=== PATIENT | male | born 1975 | race Hispanic/Latino ===

== ENCOUNTER 2025-04-15 06:24 | Emergency (ER) | payer BC ==
[~2025-04-15] VITALS: Ht 167.6 cm; Wt 85.3 kg
[2025-04-15 07:31] LABS: IMMATURE GRANULOCYTE ABSOLUTE 0.03 K/uL (0-1); NUCLEATED RED BLOOD CELLS 0.0 % (0.0-0.19); PLATELET COUNT (AUTO) 262 K/uL (130-400); RED BLOOD CELL COUNT(AUTO) 5.87 MIL/uL (4.50-6.20); RED CELL DISTRIBUTION WIDTH 12.8 % (11.0-15.5); WHITE BLOOD COUNT (AUTO) 6.0 K/uL (4.8-10.8)
--- NOTE | 2025-04-15 07:38 | EKG ---
[facility] Test Date: 2025-04-15 Test Time: 07:21:27 Pat Name: VICTOR HUGO LARA Department: [facility] Room: Gender: Male [employer]: [id number] : 1975 Requested By: RANDI MADERA Order Number: [id number] Reading MD: Measurements Intervals [place] Rate: 89 P: 35 LA: 156 QRS: -27 QRSD: 83 T: 32 QT: 391 QTc: 477 Interpretive Statements Sinus rhythm No previous ECG available for comparison Please click the below link to view image of tracing.
--- NOTE | 2025-04-15 07:40 | ERN ---
General Chief Complaint: Rib Pain Stated Complaint: L RIB PAIN Time Seen by MD: 07:11 Source: patient History of Present Illness Initial Comments 49-year-old male coming in complaining of left upper quadrant pain. Per patient the pain is localized to the left upper abdomen and lower left rib. He states that the pain began on its own does not recall any traumatic event. He states the pain started after he ate barbecue at his house. He describes the pain as aching exacerbated by movements or touch. He states that lying down flat on his back makes the pain a little more tolerable. He has a past medical history of hypertension for which he is on amlodipine lisinopril and chlorthalidone. He also states that he had a remote history of cysts in the neck which was surgically corrected. Allergies: Coded Allergies: Penicillins (Verified Allergy, Unknown, 12/30/22) Home Meds No Active Prescriptions or Reported Meds Past Medical History Past Medical History: High Cholesterol, Hypertension Past Surgical History: Appendectomy ROS Dictation CONSTITUTIONAL: No chills, no fever, no weakness, no diaphoresis, no malaise. HEAD/FACE: No signs of trauma. EENT: No eye pain, no blurred vision, no tearing, no double vision, no ear pain, no ear discharge, no nose pain, no nasal congestion, no throat pain, no throat swelling, no mouth pain. RESPIRATORY: No cough, no orthopnea, no SOB, no stridor, no wheezing. CARDIOVASCULAR: No chest pain, no edema, no palpitations, no syncope. GASTROINTESTINAL/ABDOMINAL: abdominal pain, no constipation, no diarrhea, no nausea, no vomiting. GENITOURINARY: No abnormal discharge, no dysuria, no frequent urination, no hematuria. No complaints of pain in the genitals. MUSCULOSKELETAL: No back pain, no gout, no joint pain, no joint swelling, no muscle pain, no muscle stiffness, no neck pain. INTEGUMENTARY: No change in color, no change in hair/nails, no dryness, no lesion, no lumps, no rash. NEUROLOGICAL/PSYCH: No anxiety, not depressed, no emotional problem, no heada robert, no numbness, no pre-existing deficit, no history of seizures, no tremors, no weakness. HEMATOLOGIC/LYMPHATIC: Not anemic, no history of blood clots, no apparent bleeding, no bruising, glands not swollen. All Systems Negative, Except as Noted. Physical Exam Physical Exam Dictation VITAL SIGNS: Reviewed. GENERAL APPEARANCE: Alert, oriented x3, no acute distress, obese. HEAD AND FACE: Non-traumatic. EYES: PERRL, pink conjunctivas, eyelid no trauma, anterior chamber clear. EARS: Pinnas intact and no signs of trauma or erythema. Ear canals clear and no discharge. TMs no erythema. NOSE: No discharge, no bleeding. OROPHARYNX: Mouth normal, teeth no caries, tongue pink. Pharynx clear, no erythema. Tonsils no exudates, no abscesses noted. Mucous membrane moist. NECK: Supple, non-tender, no thyromegaly, no masses, no JVD, no bruits. BREAST: Deferred. CHEST: No tenderness, no crepitus, no paradoxical movement, no retractions. LUNGS: Clear, well-ventilated, symmetric, no rales, no wheezing, no rhonchi, no stridor, good breath sounds bilaterally. HEART: Regular rate, regular rhythm, no murmur, no gallops. VASCULAR: No peripheral edema. ABDOMEN: Soft, positive bowel sounds, nondistended, no guarding,tender, no rebound, no masses no hepatomegaly, no splenomegaly, no Browne's sign, no hernias. RECTAL: Deferred. GENITAL: Deferred. NEUROLOGICAL: Normal speech, gross motor function intact, gross sensory function intact. MUSCULOSKELETAL: Neck nontender, full range of motion, back nontender, full range of motion. EXTREMITIES: Nontender, full range of motion. SKIN: Color pink, dry, no turgor, no rash, no lacerations, no abrasions, no contusions. LYMPHATICS: Deferred. Results Laboratory and Microbiology Lab and Micro Result Laboratory Tests Test 04/15/25 07:23 04/15/25 07:27 White Blood Count 6.0 K/uL (4.8-10.8) Red Blood Count 5.87 MIL/uL (4.50-6.20) Hemoglobin 17.4 g/dL (14.0-18.0) Hematocrit 48.7 % (42-54) Mean Corpuscular Volume 83.0 fL (79-99) Mean Corpuscular Hemoglobin 29.6 pg (27.0-33.0) Mean Corpuscular Hemoglobin Concent 35.7 g/dL (32.0-36.0) Red Cell Distribution Width 12.8 % (11.0-15.5) Platelet Count 262 K/uL (130-400) Mean Platelet Volume 8.7 fL (7.5-10.5) Immature Granulocyte % (Auto) 0.5 % (0-1) Neutrophils (%) (Auto) 72.9 % (40.0-77.0) Lymphocytes (%) (Auto) 14.8 % (21.0-51.0) L Monocytes (%) (Auto) 7.0 % (3.0-13.0) Eosinophils (%) (Auto) 4.1 % (0.0-8.0) Basophils (%) (Auto) 0.7 % (0.0-5.0) Neutrophils # (Auto) 4.4 K/uL (1.8-7.7) Lymphocytes # (Auto) 0.9 K/uL (1.0-4.8) L Monocytes # (Auto) 0.4 K/uL (0.1-1.0) Eosinophils # (Auto) 0.25 K/uL (0.00-0.70) Basophils # (Auto) 0.04 K/uL (0.00-0.20) Absolute Immature Granulocyte (auto 0.03 K/uL (0-1) Nucleated Red Blood Cells 0.0 % (0.0-0.19) Sodium Level 138 mmol/L (136-145) Potassium Level 3.2 mmol/L (3.5-5.1) L Chloride Level 98 mmol/L (101-111) L Carbon Dioxide Level 32 mmol/L (21-32) Blood Urea Nitrogen 18 mg/dL (7-18) Creatinine 0.9 mg/dL (0.5-1.3) Glomerular Filtration Rate Calc 106 mL/min (>90) Random Glucose 98 mg/dL (70-105) Total Calcium 9.6 mg/dL (8.5-10.1) Troponin I High Sensitivity < 4 ng/L (4-75) L Urine Color LIGHT-YELLOW (YELLOW) Urine Appearance CLEAR (CLEAR) Urine pH 6.0 (5.0-8.0) Urine Specific Gilbert 1.016 (1.001-1.031) Urine Protein NEGATIVE mg/dL (NEGATIVE) Urine Glucose (UA) NEGATIVE mg/dL (NEGATIVE) Urine Ketones NEGATIVE mg/dL (NEGATIVE) Urine Occult Blood NEGATIVE (NEGATIVE) Urine Nitrate NEGATIVE (NEGATIVE) Urine Bilirubin NEGATIVE mg/dL (NEGATIVE) Urine Urobilinogen 0.2 mg/dL (0.2-1.0) Urine Leukocyte Esterase NEGATIVE Omid/uL Urine RBC 0-1 /HPF (0-1) Urine WBC 0-1 /HPF (0-1) Urine Bacteria None /HPF (None Seen) Labs Reviewed?: Yes EKG/XRAY/US/CT/MRI CT Scan Comment [facility] [address] [place] [address] IMAGING REPORT Signed PATIENT: VICTOR HUGO LARA MR#: [id number] : 1975 SEX: M AGE: 49 LOCATION: [facility] ORDER 3 STATUS: [facility] REPORT#: [id number] SERVICE 1 REASON: llq pain ORDERING PHYSICIAN: RANDI MADERA MD PROCEDURE: ABD PEL WO - CT ABDOMEN/PELVIS W/O CONTRAST EXAM: CT Abdomen and Pelvis Without IV contrast CLINICAL HISTORY: llq pain TECHNIQUE: Axial computed tomography images of the abdomen and pelvis without intravenous contrast. CONTRAST: No IV contrast. COMPARISON: None provided. FINDINGS: LUNG BASES: The lung bases appear clear. No pleural effusions are seen. LIVER: Unremarkable. GALLBLADDER AND BILE DUCTS: The gallbladder appears within normal limits. No radioopaque gallstones are seen. No biliary ductal dilatation is evident. PANCREAS: Unremarkable. SPLEEN: Unremarkable. ADRENAL GLANDS: Unremarkable. KIDNEYS, URETERS, AND BLADDER: The kidneys appear within normal limits. There is no hydronephrosis or hydroureter. No urinary calculi are seen. STOMACH AND BOWEL: Unremarkable appearance of the stomach and bowel. No evidence of bowel obstruction. No evidence suggesting enteritis or colitis. APPENDIX: Surgical clips at the base of the cecum, consistent with prior appendectomy. PERITONEUM: No free fluid. No free air. LYMPH NODES: No lymphadenopathy is evident. REPRODUCTIVE: Unremarkable as visualized. VASCULATURE: No evidence of abdominal aortic aneurysm. BONES: No aggressive appearing osseous lesion. No acute osseous pathology evident. IMPRESSION: No acute intra-abdominal or pelvic abnormality. /[place] DICTATED BY: CAITLIN BENITEZ MD DATE: 04/15/25925 ELECTRONICALLY SIGNED BY: CAITLIN BENITEZ MD DATE: 04/15/25925 [facility] MDM: Differential diagnosis: Abdominal pain, gastritis, NSTEMI, STEMI, Rationale: Tests considered and ordered secondary to shared decision making include: Previous outside records reviewed: Old ER visits. Risk of complication and/or morbidity or mortality of patient management: None Medications-Per medication reconciliation Patient is a 49-year-old male coming in complaining of left upper quadrant pain. Imaging studies and laboratory workup within normal limits. Patient received GI cocktail states he feels better will be discharged in stable condition with a diagnosis of gastritis. Due to the intense pain he presented CT needed to be performed to rule out any pathology. ED Course Orders Procedure Category Date Status Time Cbc With Differential LAB 04/15/25 Complete 07:12 Basic Metabolic Panel LAB 04/15/25 Complete 07:12 Urinalysis LAB 04/15/25 Complete W/Microscopic 07:12 12 Lead Ekg Tracing- EKG 04/15/25 Complete Technical 07:12 Troponin I High LAB 04/15/25 Complete Sensitivity 07:12 Ct Abdomen/Pelvis W/O CT 04/15/25 Resulted Contrast 07:12 Lidocaine Hcl 2% PHA 04/15/25 In Process Viscous (Lidocaine Hcl 09:00 Mag/Alum/Simeth 30ml PHA 04/15/25 In Process (Maalox Plus 30ml) 09:00 Ketorolac PHA 04/15/25 In Process Tromethamine 15mg/Ml 09:00 Current Medications Medications (Trade) Dose Ordered Sig/Stanislaw Route PRN Reason Start Time Stop Time Status Last Admin Dose Admin Al Hydroxide/Mg Hydroxide (MAALox PLUS 30ML) 30 ml ONCE ONCE PO 04/15/25 09:00 04/15/25 09:01 04/15/25 08:54 Ketorolac Tromethamine (toRADol) 15 mg ONCE ONCE IV 04/15/25 09:00 04/15/25 09:01 04/15/25 08:54 Lidocaine HCl (Lidocaine HCl 2% Viscous) 10 ml ONCE ONCE PO 04/15/25 09:00 04/15/25 09:01 04/15/25 08:54 Vital Signs Date Time Temp Pulse Resp B/P (MAP) Pulse Ox O2 Delivery O2 Flow Rate FiO2 04/15/25 07:20 98.1 91 16 136/85 99 Room Air* 0 21 04/15/25 06:27 98.1 98 18 137/97 96 Room Air 0 DX & DISP Disposition: Discharge Departure Impression: Primary Impression: Gastritis, acute Condition: Stable Scripts Pantoprazole Sodium (Protonix) 40 Mg Ectab 1 TAB PO DAILY for 30 Days, #30 TAB 0 Refills Prov: RANDI MADERA MD 04/15/25 Additional Instructions: You arrived to the emergency department with complaints of abdominal pain on the left side. We performed a series of laboratory tests and imaging studies to rule out serious causes of your condition. We have reviewed the imaging report by the radiologist which did not point out any serious abnormalities in your abdomen. Based on the clinical history and our investigations, we have diagnosed you with acute gastritis for which we have treated you. At this time we are discharging you as we believe that you do not warrant an admission. If your symptoms persist/become more frequent/increase in intensity please visit an ER. Referrals: DONNA CARRASCO MD (PCP) Time of Disposition: 08:59 RANDI MADERA MD Apr 15, 2025 07:40 SAI SALAZAR MD Apr 15, 2025 08:52
[2025-04-15 07:44] LABS: CREATININE 0.9 mg/dL (0.5-1.3); GLOMERULAR FILTR. RATE CALC 106.0 mL/min (>90); GLUCOSE,RANDOM 98.0 mg/dL (70-105); SODIUM SERUM 138.0 mmol/L (136-145); UREA NITROGEN, BLOOD 18.0 mg/dL (7-18)
[2025-04-15 07:46] LABS: APPEARANCE,URINE CLEAR (CLEAR); GLUCOSE, URINE (UA) NEGATIVE (NEGATIVE); LEUKOCYTE ESTERASE ,URINE NEGATIVE Leu/uL (NEGATIVE); NITRATE,URINE NEGATIVE (NEGATIVE); OCCULT BLOOD,URINE NEGATIVE (NEGATIVE)
--- NOTE | 2025-04-15 08:27 | HMCIMG ---
EXAM: CT Abdomen and Pelvis Without IV contrast CLINICAL HISTORY: llq pain TECHNIQUE: Axial computed tomography images of the abdomen and pelvis without intravenous contrast. CONTRAST: No IV contrast. COMPARISON: None provided. FINDINGS: LUNG BASES: The lung bases appear clear. No pleural effusions are seen. LIVER: Unremarkable. GALLBLADDER AND BILE DUCTS: The gallbladder appears within normal limits. No radioopaque gallstones are seen. No biliary ductal dilatation is evident. PANCREAS: Unremarkable. SPLEEN: Unremarkable. ADRENAL GLANDS: Unremarkable. KIDNEYS, URETERS, AND BLADDER: The kidneys appear within normal limits. There is no hydronephrosis or hydroureter. No urinary calculi are seen. STOMACH AND BOWEL: Unremarkable appearance of the stomach and bowel. No evidence of bowel obstruction. No evidence suggesting enteritis or colitis. APPENDIX: Surgical clips at the base of the cecum, consistent with prior appendectomy. PERITONEUM: No free fluid. No free air. LYMPH NODES: No lymphadenopathy is evident. REPRODUCTIVE: Unremarkable as visualized. VASCULATURE: No evidence of abdominal aortic aneurysm. BONES: No aggressive appearing osseous lesion. No acute osseous pathology evident. IMPRESSION: No acute intra-abdominal or pelvic abnormality. /[place]
[2025-04-15] MEDS: MAG/ALUM/SIMETH 30 ML UDCUP PO ONE (08:54)
[2025-04-15] MEDS: LIDOCAINE HCL 2% VISCOUS 15 ML UDCUP PO ONE (08:54)
[2025-04-15] MEDS ORDERED: PANT40TA55 PO (09:00)
[2025-04-15 09:13] VITALS: BP 125/79; PULSE 78; RESP 16; TEMP 97.5; O2SAT 98
== END 2025-04-15 09:13 | disposition home or self-care (01) ==
LOC: EDH 06:24
DX: K29.00 Acute gastritis without bleeding (principal); E78.00 Pure hypercholesterolemia, unspecified; I10 Essential (primary) hypertension; Z88.0 Allergy status to penicillin; Z90.49 Acquired absence of other specified parts of digestive tract
CPT/HCPCS: 99284; 74176; 96374; 84484; 80048; 85025; 81001; 36415; 93005; J1885